=== PATIENT | female | born 1970 | race African-American/Black ===

== ENCOUNTER 2018-01-15 20:49 | Emergency (ER) | payer OTHER ==
[~2018-01-15] VITALS: Ht 175.3 cm; Wt 121.8 kg
[~2018-01-15 20:49] MED LIST: ATENOLOL25 MG PO; AUGMENTIN875 MG PO; CARAFATE; CARAFATE OR; CIPRODEX1 ML OT; CIPROFLOXACN500 MG PO; DEXILANT30 MG PO; DEXILANT60 MG PO; DIFLUCAN150 MG OR; DIFLUCAN150 MG PO; DIOVAN HCT160 MG/25; DIOVAN320 MG PO; FLAGYL500 MG OR; FLAGYL500 MG PO; HYZAAR1 TA1 PO; HYZAAR1 TAB PO; LEVAQUIN750 MG PO; LISINOPRIL10 MG PO; LISINOPRIL20 M1 PO; MAXZIDE-2537.5 MG/TA PO; METRONIDAZOL500 MG PO; NEXIUM20 M1 PO; NIFEDIPINE60 M1 PO; OMEPRAZOLE10 MG OR; OMEPRAZOLE40 MG; PHENTERMINE H37.5 MG PO; PRAVASTATIN40 MG PO; PROCARDIA XL30 MG PO; ROCEPHIN 2250 MG/VIA IM; ULTRAM50 M1 PO; VERAPAMIL180 M3 PO; VERAPAMIL80 M1 PO; ZITHROMAX500 MG PO; ZOFRAN ODT8 MG PO
[2018-01-15] MEDS ORDERED: LOSARTAN POT25 MG PO (20:58)
[2018-01-15 22:10] VITALS: BP 132/87
[2018-01-15] MEDS ORDERED: MOTRIN800 MG PO (22:14)
[2018-01-15] MEDS ORDERED: TRAMADOL HCL50 MG PO (22:14)
== END 2018-01-15 22:32 | disposition home or self-care (01) | DRG 563 ==
LOC: ED 20:49
PROC: 2W3MX1Z Immobilization of Left Lower Extremity using Splint (ICD-10-PCS; principal; 2018-01-15)
DX: S86.012A Strain of left Achilles tendon, initial encounter (principal); X50.1XXA Overexertion from prolonged static or awkward postures, initial encounter; Y93.67 Activity, basketball; Y92.212 Middle school as the place of occurrence of the external cause; Y99.8 Other external cause status

== ENCOUNTER 2023-02-02 11:47 | Emergency (ER) | payer OTHER ==
[~2023-02-02 11:47] MED LIST changes: +COZAAR100 MG PO; +LOSARTAN POT25 MG PO; +METRONIDAZOLE500 MG PO; +MOTRIN800 MG PO; +MOUNJARO2.5 MG SC; +ORLISTAT PO; +PANTOPRAZOLE SO40 M3 PO; +TENORMIN PO; +TRAMADOL HCL50 MG PO; +VERELAN PO; +WEGOVY1 MG SC
[2023-02-02] MEDS ORDERED: AMOX/K CLAV875 M1 PO (12:06)
[2023-02-02 12:16] VITALS: BP 132/76
[2023-02-02 12:23] VITALS: BP 132/76
== END 2023-02-02 12:27 | disposition home or self-care (01) | DRG 301 ==
LOC: ED 11:47
DX: I83.892 Varicose veins of left lower extremity with other complications (principal); I10 Essential (primary) hypertension